=== PATIENT | male | born 1965 | race Hispanic/Latino ===

== ENCOUNTER 2020-09-16 09:20 | Emergency (ER) | payer SELFPAY ==
[2020-09-16 09:59] LABS: Eosinophils # (Auto) 0.1 K/mm3 (0.0-0.4); Eosinophils % (Auto) 1.6 % (0.0-4.3); Monocytes # (Auto) 0.4 K/mm3 (0.0-0.8); Monocytes % (Auto) 10.8 % (0.0-7.3)
[2020-09-16 10:00] LABS: Hematocrit 49.9 % (35.5-45.6); Hemoglobin 17.8 gm/dl (11.8-15.2); Mean Corpuscular HGB Conc 36 % (32-34); Mean Corpuscular Volume 95 fl (84-94); Red Blood Count 5.23 M/mm3 (3.65-5.03); Red Cell Distribution Width 13.7 % (13.2-15.2)
[2020-09-16 10:01] LABS: Basophils % (Auto) 0.5 % (0.0-1.8); Lymphocytes # (Auto) 0.7 K/mm3 (1.2-5.4); Lymphocytes % (Auto) 18.2 % (13.4-35.0); Platelet Count 127 K/mm3 (140-440)
[2020-09-16 10:13] LABS: BUN/Creatinine Ratio 13; Blood Urea Nitrogen 12 mg/dL (9-20); Calcium 9.4 mg/dL (8.4-10.2); Hemolysis Index 27
[2020-09-16] MEDS ORDERED: SODIUM CHLORIDE 0.9% 1000 ML 1,000 ML IV ONE ×2 (14:00)
[2020-09-16] MEDS ORDERED: ONDANSETRON 4 MG/2 ML INJ IV ONE (14:01)
--- NOTE | 2020-09-16 14:09 | Emergency Department Report ---
HPI - General Chief Complaint: GI Bleed Time Seen by Provider: 09/16/20 13:50 - HPI HPI: Room 5 The patient is a 54-year-old male present with a chief complaint of black stool. The patient states for the past few days she has felt weak and nauseous. P atient denied vomiting. Patient states he had been taking Pepto-Bismol for the past 2 days. The patient states yesterday and today his stool has been black. Patient admits to diarrhea. Patient denies being on any anticoagulation. ED Past Medical Hx - Past Medical History Hx Hypertension: Yes Additional medical history: ANXIETY/high cholesterol - Surgical History Past Surgical History?: No - Family History Family history: no significant - Social History Smoking Status: Never Smoker Substance Use Type: None (Denies illicit drug use), Alcohol (Occasional) - Medications Home Medications: Home Medications Medication Instructions Recorded Confirmed Last Taken Type Famotidine [Pepcid] 20 mg PO BID #14 tablet 09/16/20 Unknown Rx Ondansetron [Zofran ODT TAB] 8 mg PO Q8HR #20 tab.rapdis 09/16/20 Unknown Rx ED Review of Systems ROS: Stated complaint: BLOOD IN STOOL, WEAK Other details as noted in HPI Constitutional: malaise Eyes: denies: eye pain ENT: denies: throat pain Respiratory: no symptoms reported Cardiovascular: denies: chest pain Endocrine: no symptoms reported Gastrointestinal: abdominal pain, nausea, vomiting, diarrhea, melena (?) Genitourinary: denies: dysuria Musculoskeletal: denies: back pain Neurological: denies: headache Physical Exam - Physical Exam Vital Signs: Vital Signs 09/16/20 09:31 Temperature 97.9 F Pulse Rate 97 H Respiratory 20 Rate Blood Pressure 154/99 O2 Sat by Pulse 95 Oximetry Physical Exam: GENERAL: The patient is well-developed well-nourished male lying on stretcher not appearing to be in acute distress. [] HEENT: Normocephalic. Atraumatic. Extraocular motions are intact. Patient has moist mucous membranes. NECK: Supple. Trachea midline CHEST/LUNGS: Clear to auscultation. There is no respiratory distress noted. HEART/CARDIOVASCULAR: Regular. There is no tachycardia. There is no gallop rub or murmur. ABDOMEN: Abdomen is soft, nontender. Patient has normal bowel sounds. There is no abdominal distention. SKIN: There is no rash. There is no edema. There is no diaphoresis. NEURO: The patient is awake, alert, and oriented. The patient is cooperative. The patient has normal speech MUSCULOSKELETAL: There is no evidence of acute injury. RECTAL: Faint guaiac positive dark-colored stool ED Course Vital Signs 09/16/20 09:31 Temperature 97.9 F Pulse Rate 97 H Respiratory 20 Rate Blood Pressure 154/99 O2 Sat by Pulse 95 Oximetry - Reevaluation(s) Reevaluation #1: 09/16/20 15:54 Patient states he feels much improved. Awaiting GI callback - Consultations Consultation #1: 09/16/20 15:45 GI paged 09/16/20 16:[address] Almonte have patient follow-up as outpatient ED Medical Decision Making - Lab Data Result diagrams: 09/16/20 09:42 09/16/20 09:42 Laboratory Tests 09/16/20 09/16/20 09/16/20 09:42 09:42 09:42 WBC 4.1 L RBC 5.23 H Hgb 17.8 H Hct 49.9 H MCV 95 H MCH 34 H MCHC 36 H RDW 13.7 Plt Count 127 L Lymph % (Auto) 18.2 Burnet % (Auto) 10.8 H Eos % (Auto) 1.6 Baso % (Auto) 0.5 Lymph # (Auto) 0.7 L Burnet # (Auto) 0.4 Eos # (Auto) 0.1 Baso # (Auto) 0.0 Add Manual Diff Complete Seg Neutrophils % 68.9 Seg Neutrophils # 2.8 PT INR APTT Sodium 136 L Potassium 3.9 Chloride 98.7 Carbon Dioxide 27 Anion Gap 14 BUN 12 Creatinine 0.9 Estimated GFR > 60 BUN/Creatinine Ratio 13 Glucose 118 H Calcium 9.4 Total Bilirubin 1.20 Direct Bilirubin 0.2 Indirect Bilirubin 1.0 AST 31 ALT 59 H Alkaline Phosphatase 112 Total Protein 7.2 Albumin 4.3 Albumin/Globulin Ratio 1.5 Lipase 22 09/16/20 15:21 WBC RBC Hgb Hct MCV MCH MCHC RDW Plt Count Lymph % (Auto) Burnet % (Auto) Eos % (Auto) Baso % (Auto) Lymph # (Auto) Burnet # (Auto) Eos # (Auto) Baso # (Auto) Add Manual Diff Seg Neutrophils % Seg Neutrophils # PT 12.7 INR 0.96 APTT 26.7 Sodium Potassium Chloride Carbon Dioxide Anion Gap BUN Creatinine Estimated GFR BUN/Creatinine Ratio Glucose Calcium Total Bilirubin Direct Bilirubin Indirect Bilirubin AST ALT Alkaline Phosphatase Total Protein Albumin Albumin/Globulin Ratio Lipase - Radiology Data Radiology results: report reviewed (CT abdomen pelvis), image reviewed (CT abdomen pelvis) CT abdomen pelvis (read by radiologist)-no significant abnormality. Diver ticulosis descending colon sigmoid colon. - Differential Diagnosis GI bleed, gastroenteritis, colitis, Critical care attestation.: If time is entered above; I have spent that time in minutes in the direct care of this critically ill patient, excluding procedure time. ED Disposition Clinical Impression: Nausea, Diarrhea, Dehydration, Guaiac positive stools Disposition: TO HOME OR SELFCARE Is pt being admited?: No Does the pt Need Aspirin: No Condition: Stable Instructions: Nausea and Vomiting, Adult, [id number], Diarrhea, Adult, [id number], Dehydration, Adult Additional Instructions: Return to the emergency department should you develop worsening symptoms, inability to tolerate food or liquids, high fever or any other concerns Prescriptions: Famotidine [Pepcid] 20 mg PO BID #14 tablet Ondansetron [Zofran ODT TAB] 8 mg PO Q8HR #20 tab.rapdis Referrals: PRIMARY CAREMD [Primary Care Provider] - 3-5 Days MARY RÍOS MD [Staff Physician] - 3-5 Days (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 Please follow-up with her for further evaluation) Forms: Accompanied Note Time of Disposition: 16:05
[2020-09-16 14:18] LABS: Albumin 4.3 g/dL (3.9-5); Bilirubin,Direct 0.2 mg/dL (0-0.2)
--- NOTE | 2020-09-16 15:48 | Cat Scan Report ---
CT ABDOMEN AND PELVIS WITH CONTRAST INDICATION / CLINICAL INFORMATION: Nausea vomiting diarrhea. TECHNIQUE: Axial CT images were obtained through the abdomen and pelvis after 100 cc Omnipaque 300 milligrams pe rcent IV contrast. All CT scans at this location are performed using CT dose reduction for ALARA by means of automated exposure control. COMPARISON: None available. FINDINGS: LOWER CHEST: No significant abnormality. LIVER: No significant abnormality. GALLBLADDER: No significant abnormality. BILE DUCTS: No significant abnormality. PANCREAS: No significant abnormality. SPLEEN: No significant abnormality. ADRENALS: No significant abnormality. RIGHT KIDNEY and URETER: No significant abnormality. LEFT KIDNEY and URETER: 3 cm left renal cyst STOMACH and SMALL BOWEL: No significant abnormality. COLON: Diverticulosis sigmoid colon and descending colon APPENDIX: No significant abnormality. PERITONEUM: No free fluid. No free air. No fluid collection. LYMPH NODES: No significant adenopathy. AORTA and ARTERIES: Calcified atherosclerotic plaque abdominal aorta IVC and VEINS: No significant abnormality. URINARY BLADDER: No significant abnormality. REPRODUCTIVE ORGANS: No significant abnormality. ADDITIONAL FINDINGS: None. SKELETAL SYSTEM: No significant abnormality. IMPRESSION: 1. No significant abnormality. 2. Diverticulosis descending colon sigmoid colon Signer Name: Brad Humphreys MD Signed: 09/16/2020 3:44 PM Workstation Name: [email or web address]
[2020-09-16 15:51] LABS: INR 0.96 (0.87-1.13); Partial Thromboplastin Time 26.7 Sec. (24.2-36.6)
[2020-09-16 17:59] VITALS: BP 133/72
== END 2020-09-16 17:20 | disposition home or self-care (01) ==
LOC: ED 09:20
DX: R11.0 Nausea (principal); R19.7 Diarrhea, unspecified; E86.0 Dehydration; R19.5 Other fecal abnormalities; I10 Essential (primary) hypertension; F41.9 Anxiety disorder, unspecified; E78.00 Pure hypercholesterolemia, unspecified; Z79.899 Other long term (current) drug therapy
CPT/HCPCS: 36415; 74177; 80048; 80076; 82271; 83690; 85025; 85610; 85730; 96361; 96374; 99284; J2405; J7030; Q9967